=== PATIENT | female | born 1980 | race Caucasian/White ===

== ENCOUNTER 2017-02-16 20:24 | Emergency (ER) | payer OTHER ==
[2017-02-16] MEDS ORDERED: SODIUM CHLORIDE 0.9% 1,000 ML IV STA (20:32)
[2017-02-16] MEDS ORDERED: IBUPROFEN 600 MG TAB PO STA (20:43)
[2017-02-16 20:46] VITALS: RESP 16
--- NOTE | 2017-02-16 20:57 | ED ---
Chest Pain HPI - General Chief Complaint: Chest Pain Stated Complaint: Chest Pain Time Seen by Provider: 02/16/17 20:30 Source: patient, RN notes reviewed Mode of arrival: wheelchair Limitations: no limitations - History of Present Illness Initial Comments: patient is a 36-year-old female presents to the emergency room for evaluation of chest pain. Patient states chest pain began a few hours ago. Patient is having pain on the left anterior chest wall that radiates into her left arm. Patient states she's having 10 out of 10 pain. Patient states the pain is sharp and throbbing. Patient states the pain is worse when she takes a deep breath. Patient states the pain radiates into her back. Patient states she does smoke a pack of cigarettes every 4 days. Patient denies taking anything for pain. Patient denies recent heavy lifting or trauma to her chest. Patient denies any cardiac history. Patient denies headache or dizziness. Patient denies nausea or vomiting. Patient denies abdominal pain. Patient denies fevers or chills. Patient denies any cough or recent cough. Patient also states she has history of asthma. - Related Data Home Medications Medication Instructions Recorded Confirmed Albuterol Inhaler [Ventolin Hfa 1 - 2 puff INHALATION RT-Q6H PRN 02/16/17 Inhaler] Ibuprofen [Motrin] 800 mg PO BID PRN 02/16/17 02/16/17 Previous Rx's Medication Instructions Recorded HYDROcodone/APAP 5-325MG [[place] 1 tab PO Q6HR PRN #12 tab 02/16/17 5-325] Orphenadrine [Norflex] 100 mg PO Q12H PRN #12 tablet.er 02/16/17 Allergies Allergy/AdvReac Type Severity Reaction Status Date / Time Penicillins Allergy Swelling Verified 02/16/17 21:02 Review of Systems ROS Statement: Those systems with pertinent positive or pertinent negative responses have been documented in the HPI. ROS Other: All systems not noted in ROS Statement are negative. EKG Findings - EKG Comments: EKG Findings:: normal sinus rhythm with sinus arrhythmia, ventricular rate 71 bpm, DE interval 154 ms, QRS duration 92 ms, QT/QTC 418/454 ms Past Medical History Past Medical History: Asthma, Cancer Additional Past Medical History / Comment(s): back pain, migraines, cervical Ca History of Any Multi-Drug Resistant Organisms: None Reported Past Surgical History: Cholecystectomy, Tubal Ligation Additional Past Surgical History / Comment(s): left ovary and fallopian tube removed, vaginal reconstruction, cone procedure, cryofreeze for cervical ca Past Psychological History: No Psychological Hx Reported Smoking Status: Current every day smoker Past Alcohol Use History: None Reported Past Drug Use History: None Reported General Exam - General Exam Comments Initial Comments: sitting up in exam room, no acute distress. Limitations: no limitations General appearance: alert, in no apparent distress Head exam: Present: atraumatic, normocephalic, normal inspection Eye exam: Present: normal appearance ENT exam: Present: normal exam Neck exam: Present: normal inspection Respiratory exam: Present: normal lung sounds bilaterally, chest wall tenderness (reproducible left anterior wall chest tenderness on palpation). Absent: respiratory distress Cardiovascular Exam: Present: regular rate, normal rhythm, normal heart sounds GI/Abdominal exam: Present: soft, normal bowel sounds. Absent: distended, tenderness, guarding, rebound, rigid Extremities exam: Present: normal inspection Back exam: Present: normal inspection Neurological exam: Present: alert, oriented X3, CN II-XII intact, normal gait Psychiatric exam: Present: normal affect, normal mood Skin exam: Present: warm, dry, intact, normal color. Absent: rash Course Vital Signs 02/16/17 02/16/17 02/16/17 20:25 20:45 22:17 Temperature 98.3 F 98.7 F Pulse Rate 83 73 68 Respiratory 24 16 16 Rate Blood Pressure 137/93 147/88 143/68 O2 Sat by Pulse 98 98 98 Oximetry 02/16/17 22:56 Temperature 97.8 F Pulse Rate 64 Respiratory 16 Rate Blood Pressure 126/64 O2 Sat by Pulse 96 Oximetry [facility] Patient is a 36-year-old female presents to the emergency room for evaluation of chest pain. Patient has reproducible tenderness on left anterior chest wall. Cardiac enzymes within normal limits. EKG shows no concerning findings. Chest x-ray shows no concerning findings. Most likely that this chest pain is related to musculoskeletal in nature or pleuritic. Patient was sent home with pain medications and advised follow-up with primary care provider. Advised patient to return for any worsening symptoms. Patient states she understands everything that was discussed with her. Case discussed Dr. Corrigan. Disposition Clinical Impression: Costochondral chest pain Disposition: HOME SELF-CARE Condition: Good Instructions: Costochondritis (ED) Additional Instructions: Take medications as needed. Apply ice and heat. Please follow up with primary care provider in 1-2 days. If any new symptom arises or symptoms worsen, return to ER as soon as possible. Prescriptions: HYDROcodone/APAP 5-325MG [[place] 5-325] 1 tab PO Q6HR PRN #12 tab PRN Reason: Pain Orphenadrine [Norflex] 100 mg PO Q12H PRN #12 tablet.er PRN Reason: Pain Referrals: Vu Ramirez DO [Primary Care Provider] - 1-2 days Time of Disposition: 22:34
[2017-02-16] MEDS ORDERED: ASPIRIN 81 MG CHEW PO STA (21:10)
[2017-02-16] MEDS ORDERED: ONDANSETRON 4 MG/2 ML VIAL IVP STA (21:11)
[2017-02-16 21:17] LABS: Amorphous Sediment,Urine Moderate /hpf; Appearance,Urine Turbid (Clear); Bilirubin,Urine Negative (Negative); Glucose,Urine (UA) Negative (Negative); Ketones,Urine Negative (Negative); Leukocyte Esterase,Urine Negative (Negative); Mucus,Urine Rare /hpf; Nitrite,Urine Negative (Negative); PH, Urine 5.5 (5.0-8.0); Particle Count 17285; Protein,Urine Trace (Negative); RBC,Urine 12 /hpf (0-5); Specific Gravity,Urine 1.023 (1.001-1.035); Squamous Epithelial Cell,Urine 5 /hpf (0-4); UA Billing (MACRO vs. MICRO) MICRO; Urobilinogen,Urine <2.0 mg/dL (<2.0); WBC,Urine 27 /hpf (0-5)
[2017-02-16 21:20] LABS: ALT 50 U/L (9-52); AST 20 U/L (14-36); Alkaline Phosphatase 82 U/L (38-126); Amylase <30 U/L (30-110); Anion Gap 11 mmol/L; Blood Urea Nitrogen 10 mg/dL (7-17); Calcium 9.1 mg/dL (8.4-10.2); Carbon Dioxide 22 mmol/L (22-30); Chloride 108 mmol/L (98-107); Glucose 94 mg/dL (74-99); Magnesium 1.9 mg/dL (1.6-2.3); Non-African American GFR(MDRD) >60 (>60 ml/min/1.73 sqM); Potassium 4.1 mmol/L (3.5-5.1); Sodium 141 mmol/L (137-145); Total Bilirubin 0.5 mg/dL (0.2-1.3); Total Protein 6.9 g/dL (6.3-8.2)
[2017-02-16 21:26] LABS: Basophils # (A) 0.1 k/uL (0-0.2); Basophils % (A) 1 %; CH 30.1; CHCM 34.6; Eosinophils # (A) 0.3 k/uL (0-0.7); Eosinophils % (A) 3 %; HDW 2.74; INR 0.9 (<1.1); Luc # (Auto) 0.18; Luc % (Auto) 2; Lymphocytes # (A) 2.9 k/uL (1.0-4.8); Lymphocytes % (A) 31 %; MCH 31.3 pg (25.0-35.0); MCHC 35.9 g/dL (31.0-37.0); MCV 87.2 fL (80.0-100.0); Mean Platelet Volume 6.5; Monocytes # (A) 0.5 k/uL (0-1.0); Monocytes % (A) 5 %; Neutrophils # (A) 5.4 k/uL (1.3-7.7); Neutrophils % (A) 58 %; Partial Thromboplastin Time 24.8 sec (22.0-30.0); Prothrombin Time 9.7 sec (9.0-12.0); RBC 4.48 m/uL (3.80-5.40); RDW 13.3 % (11.5-15.5); WBC 9.4 k/uL (3.8-10.6); WBC (Perox) 9.74
[2017-02-16 21:32] LABS: Creatine Kinase 61 U/L (30-135)
[2017-02-16 21:45] LABS: Creatine Kinase MB 1.5 ng/mL (0.0-2.4); Troponin I <0.012 ng/mL (0.000-0.034)
[2017-02-16] MEDS ORDERED: ACETAMINOPHEN TAB 500 MG TAB PO STA (22:00)
--- NOTE | 2017-02-16 22:05 | XR ---
EXAMINATION TYPE: XR chest 2V DATE OF EXAM: 02/16/2017 COMPARISON: July 10, 2014 HISTORY: pain TECHNIQUE: Frontal and lateral views of the chest are obtained. FINDINGS: There is no focal air space opacity, pleural effusion, or pneumothorax seen. The cardiac silhouette size is within normal limits. The osseous structures are intact. IMPRESSION: No acute cardiopulmonary process.
[2017-02-16] MEDS ORDERED: MORPHINE SULFATE 4 MG/ML SYRINGE IVP STA (22:15)
[2017-02-16 22:58] VITALS: BP 126/64; PULSE 64; TEMP 97.8
== END 2017-02-16 22:57 | disposition home or self-care (01) ==
LOC: EC 20:24
DX: R07.1 Chest pain on breathing (principal); F17.210 Nicotine dependence, cigarettes, uncomplicated; Z85.41 Personal history of malignant neoplasm of cervix uteri; Z88.0 Allergy status to penicillin
CPT/HCPCS: 99285; 96374; 96375; 96361; 36415; 93005; 85379; 80053; 82150; 82550; 82553; 83690; 83735; 84484; 85025; 85610; 85730; 81001; 81025; 71020; J2270; J2405

== ENCOUNTER 2018-02-04 16:01 | Emergency (ER) | payer OTHER ==
[2018-02-04] MEDS ORDERED: KETOROLAC 30 MG/ML 1 ML VIAL IVP STA (16:16)
[2018-02-04] MEDS ORDERED: ONDANSETRON 4 MG/2 ML VIAL IVP STA (16:16)
[2018-02-04] MEDS ORDERED: SODIUM CHLORIDE 0.9% 1,000 ML IV ONE (16:16)
--- NOTE | 2018-02-04 16:20 | ED ---
Female Urogenital HPI - General Chief complaint: Vaginal Bleeding Stated complaint: Vaginal Bleeding Time Seen by Provider: 02/04/18 16:07 Source: patient Mode of arrival: ambulatory Limitations: no limitations - History of Present Illness Initial comments: 37-year-old female patient presents to the emergency department today for complaints of vaginal bleeding 2 weeks. Patient states that she has been having heavy vaginal bleeding with passage of large clots for the last 2 weeks. Patient states that it did stop last night however continued again this afternoon. States that the bleeding ranges from bright red to brown. States that she has had cervical cancer in the past with cone procedure and cryotherapy. States that she has had one ovary removed. She has had her tubes tied. She denies any chance of related to this. States that her periods are very irregular after having nexplanon in her arm for 3 years. States that she is unsure when her last normal menstrual period was. States that she is having severe lower abdominal cramping at this time. She is complaining of low back pain. States she feels nauseous. Denies any dysuria, urinary frequency, urinary urgency. Denies any fevers or chills. Patient denies any recent rash, shortness breath, chest pain, vomiting, diarrhea, constipation, back pain, numbness, tingling, dizziness, weakness, headache, visual changes, or any other complaints. States it has been "over a year" since she last saw an OBGYN. - Related Data Home Medications Medication Instructions Recorded Confirmed Albuterol Inhaler [Ventolin Hfa 1 - 2 puff INHALATION RT-Q6H PRN 02/16/17 Inhaler] Ibuprofen [Motrin] 800 mg PO BID PRN 02/16/17 02/16/17 Previous Rx's Medication Instructions Recorded HYDROcodone/APAP 5-325MG [[place] 1 tab PO Q6HR PRN #12 tab 02/16/17 5-325] Orphenadrine [Norflex] 100 mg PO Q12H PRN #12 tablet.er 02/16/17 Acetaminophen-Codeine 300-30mg 1 tab PO Q6H PRN #12 tablet 02/04/18 [Tylenol #3] Ibuprofen [Motrin] 600 mg PO Q8HR PRN #30 tab 02/04/18 Allergies Allergy/AdvReac Type Severity Reaction Status Date / Time Penicillins Allergy Swelling Verified 02/04/18 16:06 Review of Systems ROS Statement: Those systems with pertinent positive or pertinent negative responses have been documented in the HPI. ROS Other: All systems not noted in ROS Statement are negative. Past Medical History Past Medical History: Asthma, Cancer Additional Past Medical History / Comment(s): back pain, migraines, cervical Ca History of Any Multi-Drug Resistant Organisms: None Reported Past Surgical History: Cholecystectomy, Tubal Ligation Additional Past Surgical History / Comment(s): left ovary and fallopian tube removed, vaginal reconstruction, cone procedure, cryofreeze for cervical ca Past Psychological History: No Psychological Hx Reported Smoking Status: Current every day smoker Past Alcohol Use History: None Reported Past Drug Use History: None Reported General Exam Limitations: no limitations General appearance: alert, in no apparent distress, other (This is a well- developed, well-nourished adult female patient in no acute distress. Vital signs upon presentation are temperature 98.1F, pulse 89, respirations 20, blood pressure 137/86, pulse ox 98% on room air.) Eye exam: Present: normal appearance, PERRL, EOMI. Absent: scleral icterus, conjunctival injection, periorbital swelling ENT exam: Present: normal exam, normal oropharynx, mucous membranes moist Respiratory exam: Present: normal lung sounds bilaterally. Absent: respiratory distress, wheezes, rales, rhonchi, stridor Cardiovascular Exam: Present: regular rate, normal rhythm, normal heart sounds. Absent: systolic murmur, diastolic murmur, rubs, gallop, clicks GI/Abdominal exam: Present: soft, normal bowel sounds. Absent: distended, tenderness, guarding, rebound, rigid External exam: Present: normal external exam Speculum exam: Present: normal speculum exam, vaginal bleeding (Small amount of dark red blood. ) Neurological exam: Present: alert, oriented X3, CN II-XII intact Psychiatric exam: Present: normal affect, normal mood Skin exam: Present: warm, dry, intact, normal color. Absent: rash Course Vital Signs 02/04/18 02/04/18 16:02 17:47 Temperature 98.1 F 97.9 F Pulse Rate 89 79 Respiratory 20 18 Rate Blood Pressure 137/86 109/57 O2 Sat by Pulse 98 98 Oximetry Medical Decision Making - Medical Decision Making -year-old female patient presents to the emergency department today for evaluation of heavy vaginal bleeding 2 weeks. Physical examination is unremarkable. Pelvic exam reveals a small amount of dark red vaginal bleeding. No adnexal tenderness. Ultrasound was obtained and showed no acute abnormalities. Labs reviewed and were normal. Hemoglobin normal. HCG was negative. I did discuss findings and results with the patient. She is instructed to follow-up with the mill recorder for recheck as soon as possible. She'll be given pain medication for her severe cramping. Return parameters discussed in detail. She verbalizes understanding and agrees with this plan. - Lab Data Result diagrams: 02/04/18 16:25 02/04/18 16:25 Lab Results 02/04/18 02/04/18 02/04/18 Range/Units 16:25 16:25 16:25 WBC 10.8 H (3.8-10.6) k/uL RBC 4.87 (3.80-5.40) m/uL Hgb 14.1 (11.4-16.0) gm/dL Hct 41.9 (34.0-46.0) % MCV 86.0 (80.0-100.0) fL MCH 28.9 (25.0-35.0) pg MCHC 33.6 (31.0-37.0) g/dL RDW 13.7 (11.5-15.5) % Plt Count 331 (150-450) k/uL Neutrophils % 63 % Lymphocytes % 27 % Monocytes % 4 % Eosinophils % 3 % Basophils % 1 % Neutrophils # 6.8 (1.3-7.7) k/uL Lymphocytes # 2.9 (1.0-4.8) k/uL Monocytes # 0.5 (0-1.0) k/uL Eosinophils # 0.4 (0-0.7) k/uL Basophils # 0.1 (0-0.2) k/uL PT 9.7 (9.0-12.0) sec INR 1.0 (<1.2) APTT 24.4 (22.0-30.0) sec Sodium 140 (137-145) mmol/L Potassium 3.9 (3.5-5.1) mmol/L Chloride 109 H (98-107) mmol/L Carbon Dioxide 18 L (22-30) mmol/L Anion Gap 13 mmol/L BUN 11 (7-17) mg/dL Creatinine 0.64 (0.52-1.04) mg/dL Est GFR (CKD-EPI)AfAm >90 (>60 ml/min/1.73 sqM) Est GFR (CKD-EPI)NonAf >90 (>60 ml/min/1.73 sqM) Glucose 107 H (74-99) mg/dL Calcium 9.0 (8.4-10.2) mg/dL Total Bilirubin 0.2 (0.2-1.3) mg/dL AST 23 (14-36) U/L ALT 49 (9-52) U/L Alkaline Phosphatase 77 (38-126) U/L Total Protein 7.0 (6.3-8.2) g/dL Albumin 4.4 (3.5-5.0) g/dL Urine Color Urine Appearance (Clear) Urine pH (5.0-8.0) Ur Specific [place] (1.001-1.035) Urine Protein (Negative) Urine Glucose (UA) (Negative) Urine Ketones (Negative) Urine Blood (Negative) Urine Nitrite (Negative) Urine Bilirubin (Negative) Urine Urobilinogen (<2.0) mg/dL Ur Leukocyte Esterase (Negative) Urine RBC (0-5) /hpf Urine WBC (0-5) /hpf Ur Squamous Epith Cells (0-4) /hpf Urine Mucus (None) /hpf Urine HCG, Qual (Not Detectd) 02/04/18 02/04/18 Range/Units 17:44 17:44 WBC (3.8-10.6) k/uL RBC (3.80-5.40) m/uL Hgb (11.4-16.0) gm/dL Hct (34.0-46.0) % MCV (80.0-100.0) fL MCH (25.0-35.0) pg MCHC (31.0-37.0) g/dL RDW (11.5-15.5) % Plt Count (150-450) k/uL Neutrophils % % Lymphocytes % % Monocytes % % Eosinophils % % Basophils % % Neutrophils # (1.3-7.7) k/uL Lymphocytes # (1.0-4.8) k/uL Monocytes # (0-1.0) k/uL Eosinophils # (0-0.7) k/uL Basophils # (0-0.2) k/uL PT (9.0-12.0) sec INR (<1.2) APTT (22.0-30.0) sec Sodium (137-145) mmol/L Potassium (3.5-5.1) mmol/L Chloride (98-107) mmol/L Carbon Dioxide (22-30) mmol/L Anion Gap mmol/L BUN (7-17) mg/dL Creatinine (0.52-1.04) mg/dL Est GFR (CKD-EPI)AfAm (>60 ml/min/1.73 sqM) Est GFR (CKD-EPI)NonAf (>60 ml/min/1.73 sqM) Glucose (74-99) mg/dL Calcium (8.4-10.2) mg/dL Total Bilirubin (0.2-1.3) mg/dL AST (14-36) U/L ALT (9-52) U/L Alkaline Phosphatase (38-126) U/L Total Protein (6.3-8.2) g/dL Albumin (3.5-5.0) g/dL Urine Color Yellow Urine Appearance Clear (Clear) Urine pH 5.5 (5.0-8.0) Ur Specific [place] 1.034 (1.001-1.035) Urine Protein 1+ H (Negative) Urine Glucose (UA) Negative (Negative) Urine Ketones Negative (Negative) Urine Blood Large H (Negative) Urine Nitrite Negative (Negative) Urine Bilirubin Negative (Negative) Urine Urobilinogen 3.0 (<2.0) mg/dL Ur Leukocyte Esterase Negative (Negative) Urine RBC 1 (0-5) /hpf Urine WBC 2 (0-5) /hpf Ur Squamous Epith Cells 2 (0-4) /hpf Urine Mucus Few H (None) /hpf Urine HCG, Qual Not Detected (Not Detectd) - Radiology Data Radiology results: report reviewed Transvaginal ultrasound was obtained and shows minimal free fluid in the pelvis. Simple right ovarian cyst. No solid adnexal mass. Normal uterus and endometrium. Disposition Clinical Impression: Dysfunctional uterine bleeding Disposition: HOME SELF-CARE Condition: Good Instructions: Dysfunctional Uterine Bleeding (ED) Additional Instructions: Follow-up with [facility] as soon as possible. Return here immediately for any new , worsening, or concerning symptoms. Prescriptions: Acetaminophen-Codeine 300-30mg [Tylenol #3] 1 tab PO Q6H PRN #12 tablet PRN Reason: Pain Ibuprofen [Motrin] 600 mg PO Q8HR PRN #30 tab PRN Reason: Pain Is patient prescribed a controlled substance at d/c from ED?: Yes When asked, does pt state using other controlled substances?: No If prescribed controlled substance>3 days was MAPS reviewed?: Prescribed <3 Days If opioid is for acute pain is fill amount 7 days or less?: Yes If Rx opioid, was Start Talking consent form obtained?: Yes Referrals: Vu Ramirez DO [Primary Care Provider] - 1-2 days Althea Ovalles DO [Doctor of Osteopathic Medicine] - 1-2 days Time of Disposition: 18:32
[2018-02-04 16:32] LABS: HGB 14.1 gm/dL (11.4-16.0); RBC 4.87 m/uL (3.80-5.40); WBC 10.8 k/uL (3.8-10.6)
[2018-02-04 16:33] LABS: Basophils # (A) 0.1 k/uL (0-0.2); Basophils % (A) 1 %; Eosinophils # (A) 0.4 k/uL (0-0.7); Eosinophils % (A) 3 %; HCT 41.9 % (34.0-46.0); Lymphocytes # (A) 2.9 k/uL (1.0-4.8); Lymphocytes % (A) 27 %; MCH 28.9 pg (25.0-35.0); MCHC 33.6 g/dL (31.0-37.0); Mean Platelet Volume 6.5; Monocytes # (A) 0.5 k/uL (0-1.0); Monocytes % (A) 4 %; Neutrophils # (A) 6.8 k/uL (1.3-7.7); Neutrophils % (A) 63 %; Platelet Count 331 k/uL (150-450); RDW 13.7 % (11.5-15.5)
[2018-02-04 16:42] LABS: ALT 49 U/L (9-52); AST 23 U/L (14-36); Albumin 4.4 g/dL (3.5-5.0); Alkaline Phosphatase 77 U/L (38-126); Anion Gap 13 mmol/L; Blood Urea Nitrogen 11 mg/dL (7-17); Carbon Dioxide 18 mmol/L (22-30); Chloride 109 mmol/L (98-107); Glucose 107 mg/dL (74-99); Potassium 3.9 mmol/L (3.5-5.1); Sodium 140 mmol/L (137-145); Total Bilirubin 0.2 mg/dL (0.2-1.3)
[2018-02-04 16:43] LABS: Partial Thromboplastin Time 24.4 sec (22.0-30.0); Prothrombin Time 9.7 sec (9.0-12.0)
--- NOTE | 2018-02-04 17:34 | US ---
EXAMINATION TYPE: US transvaginal DATE OF EXAM: 02/04/2018 COMPARISON: NONE CLINICAL HISTORY: pain. Bleeding x 2 weeks, patient states she has heavy irregular cycles, 3, para 3, history of left oophorectomy and tubal ligation TECHNIQUE: Transvaginal ER exam. Date of LMP: Patient unsure EXAM MEASUREMENTS: Uterus: 7.9 x 4.3 x 4.6 cm Endometrial Stripe: 0.5 cm Right Ovary: 3.7 x 2.5 x 3.3 cm Left Ovary: surgically absent 1. Uterus: anteverted, mildly heterogeneous 2. Endometrium: appears wnl 3. Right Ovary: 2.3 x 2.0 x 1.7cm cystic area with internal echoes, smaller simple appearing cyst ad jacent to larger one 4. Left Ovary: surgically absent Spectral, color and waveform doppler imaging shows good arterial flow within right ovary, unable to obtain venous flow within right ovary. 5. Bilateral Adnexa: wnl 6. Posterior cul-de-sac: small amount of free fluid IMPRESSION: Minimal free fluid in the pelvis. Simple right ovarian cyst. No solid adnexal mass. Ai l uterus and endometrium.
[2018-02-04 17:48] VITALS: BP 109/57; PULSE 79; RESP 18; TEMP 97.9
[2018-02-04 18:20] LABS: Appearance,Urine Clear (Clear); Bilirubin,Urine Negative (Negative); Blood,Urine Large (Negative); Color,Urine Yellow; Glucose,Urine (UA) Negative (Negative); Ketones,Urine Negative (Negative); Leukocyte Esterase,Urine Negative (Negative); Mucus,Urine Few /hpf; Nitrite,Urine Negative (Negative); PH, Urine 5.5 (5.0-8.0); Protein,Urine 1+ (Negative); RBC,Urine 1 /hpf (0-5); Specific Gravity,Urine 1.034 (1.001-1.035); Squamous Epithelial Cell,Urine 2 /hpf (0-4); WBC,Urine 2 /hpf (0-5)
== END 2018-02-04 19:02 | disposition home or self-care (01) ==
LOC: EC 16:01
DX: N93.8 Other specified abnormal uterine and vaginal bleeding (principal); R11.0 Nausea; M54.5 Low back pain; J45.909 Unspecified asthma, uncomplicated; F17.200 Nicotine dependence, unspecified, uncomplicated; Z85.41 Personal history of malignant neoplasm of cervix uteri; Z90.49 Acquired absence of other specified parts of digestive tract; Z98.51 Tubal ligation status; Z88.0 Allergy status to penicillin
CPT/HCPCS: 36415; 80053; 85025; 85610; 85730; 81001; 81025; 93976; 76830; 99284; 96374; 96375; 96361; J2405; J1885

== ENCOUNTER 2019-12-24 12:18 | Emergency (ER) | payer OTHER ==
[2019-12-24] MEDS ORDERED: KETOROLAC 30 MG/ML 1 ML VIAL IM STA (12:41)
--- NOTE | 2019-12-24 12:45 | ED ---
General Adult HPI - General Chief complaint: Extremity Injury, Lower Stated complaint: right knee pain Time Seen by Provider: 12/24/19 12:24 Source: patient, RN notes reviewed Mode of arrival: ambulatory Limitations: physical limitation - History of Present Illness Initial comments: 39-year-old female with a history of asthma, cervical cancer, back pain, migraines presents to the emergency department for a chief complaint of right knee pain. Patient states this started 2 days ago. States that it radiates up and down her leg. States it looks a little bit swollen. Denies erythema of the area. Denies IV drug use. Patient denies any fevers. Patient denies stating she has had a hysterectomy.Patient has no other complaints at this time including shortness of breath, chest pain, abdominal pain, nausea or vomiting, headache, or visual changes. - Related Data Home Medications Medication Instructions Recorded Confirmed Albuterol Inhaler (Mhu) [Ventolin 1 - 2 puff INHALATION RT-Q6H PRN 02/16/17 02/16/17 Hfa Inhaler] Ibuprofen [Motrin] 800 mg PO BID PRN 02/16/17 02/16/17 Previous Rx's Medication Instructions Recorded HYDROcodone/APAP 5-325MG [[place] 1 tab PO Q6HR PRN #12 tab 02/16/17 5-325] Orphenadrine [Norflex] 100 mg PO Q12H PRN #12 tablet.er 02/16/17 Acetaminophen-Codeine 300-30mg 1 tab PO Q6H PRN #12 tablet 02/04/18 [Tylenol #3] Ibuprofen [Motrin] 600 mg PO Q8HR PRN #30 tab 02/04/18 Allergies Allergy/AdvReac Type Severity Reaction Status Date / Time Penicillins Allergy Swelling Verified 12/24/19 12:23 Review of Systems ROS Statement: Those systems with pertinent positive or pertinent negative responses have been documented in the HPI. ROS Other: All systems not noted in ROS Statement are negative. Past Medical History Past Medical History: Asthma, Cancer Additional Past Medical History / Comment(s): back pain, migraines, cervical Ca History of Any Multi-Drug Resistant Organisms: None Reported Past Surgical History: Cholecystectomy, Tubal Ligation Additional Past Surgical History / Comment(s): left ovary and fallopian tube removed, vaginal reconstruction, cone procedure, cryofreeze for cervical ca Past Psychological History: No Psychological Hx Reported Smoking Status: Current every day smoker Past Alcohol Use History: Occasional Past Drug Use History: Marijuana General Exam Limitations: physical limitation General appearance: alert, in no apparent distress Head exam: Present: atraumatic, normocephalic, normal inspection Eye exam: Present: normal appearance, PERRL, EOMI. Absent: scleral icterus, conjunctival injection, periorbital swelling ENT exam: Present: normal exam, mucous membranes moist Neck exam: Present: normal inspection. Absent: tenderness, meningismus, lymphadenopathy Respiratory exam: Present: normal lung sounds bilaterally. Absent: respiratory distress, wheezes, rales, rhonchi, stridor Cardiovascular Exam: Present: regular rate, normal rhythm, normal heart sounds. Absent: systolic murmur, diastolic murmur, rubs, gallop, clicks Extremities exam: Present: tenderness (Patient is a tenderness to the posterior knee and calf.), normal capillary refill (Capillary refill less than 2 seconds, to be postictal S in the right lower extremity.), joint swelling (Mild edema of the right knee however there is no increased warmth to the right knee. No erythema.), other ([place] intact in the right lower extremity.). Absent: full ROM (Patient has 90 flexion of the right knee, full extension.), pedal akosua ma, calf tenderness Course Vital Signs 12/24/19 12:21 Temperature 97.9 F Pulse Rate 69 Respiratory 18 Rate Blood Pressure 161/101 O2 Sat by Pulse 100 Oximetry Medical Decision Making - Medical Decision Making Ultrasound shows no evidence of DVT at this time. X-ray of the right knee shows no acute fracture or dislocation. On reevaluation patient is in much better. Patient can flex her knee past 90. She came in on the right knee. I do not see any erythema or increased warmth. No fevers. No current evidence for a septic arthritis. At this time patient will be discharged home to follow up with orthopedics. She will be given pain medicine and an immobilizer. She'll return for any worsening symptoms. Disposition Clinical Impression: Knee pain Disposition: HOME SELF-CARE Condition: Good Instructions (If sedation given, give patient instructions): Knee Pain (ED) Additional Instructions: Please use knee immobilizer as directed. Please follow-up with primary care 1-2 days. Return to the emergency department for any worsening symptoms. Return for any redness or warmth or fevers. Is patient prescribed a controlled substance at d/c from ED?: No Referrals: Vu Ramirez DO [Primary Care Provider] - 1-2 days Keanu Rivero DO [Doctor of Osteopathic Medicine] - 1-2 days Time of Disposition: 14:11
--- NOTE | 2019-12-24 12:59 | XR ---
EXAMINATION TYPE: XR knee complete RT DATE OF EXAM: 12/24/2019 CLINICAL HISTORY: pain TECHNIQUE: Three views of the right knee are obtained. COMPARISON: None. FINDINGS: There is no acute fracture/dislocation. The tri-compartment joint spaces appear moderatel y narrowed. Small joint effusion noted. The overlying soft tissue appears unremarkable. IMPRESSION: There is no acute fracture or dislocation.ICD 10 NO FRACTURE, INITIAL EVALUATION
--- NOTE | 2019-12-24 13:19 | US ---
EXAMINATION TYPE: US venous doppler duplex LE RT DATE OF EXAM: 12/24/2019 1:13 PM COMPARISON: CLINICAL HISTORY: pain. right leg pain. No hx DVT SIDE PERFORMED: Right TECHNIQUE: The lower extremity deep venous system is examined utilizing real time linear array sonog gage with graded compression, doppler sonography and color-flow sonography. VESSELS IMAGED: External Iliac Vein (EIV) Common Femoral Vein Deep Femoral Vein Greater Saphenous Vein * Femoral Vein Popliteal Vein Small Saphenous Vein * Proximal Calf Veins (* superficial vessels) Right Leg: Negative for DVT IMPRESSION: No evidence for DVT at this time.
[2019-12-24] MEDS ORDERED: ACET/COD 300 MG/30 MG STARTER PACK 6 TAB BTL PO STA (14:21)
[2019-12-24 14:33] VITALS: BP 158/90; PULSE 62; RESP 16; TEMP 98.1
== END 2019-12-24 14:31 | disposition home or self-care (01) ==
LOC: EC 12:18
DX: M25.561 Pain in right knee (principal); M79.89 Other specified soft tissue disorders; R60.9 Edema, unspecified; J45.909 Unspecified asthma, uncomplicated; F17.200 Nicotine dependence, unspecified, uncomplicated; Z79.51 Long term (current) use of inhaled steroids; Z85.41 Personal history of malignant neoplasm of cervix uteri; Z88.0 Allergy status to penicillin
CPT/HCPCS: 73562; 93971; 96372; 99284; L1830 ×2; J1885

== ENCOUNTER 2020-04-10 17:57 | Emergency (ER) | payer OTHER ==
[2020-04-10 18:02] VITALS: BP 142/95; PULSE 88; RESP 18; TEMP 99
--- NOTE | 2020-04-10 18:22 | ED ---
General Adult HPI - General Chief complaint: Skin/Abscess/Foreign Body Stated complaint: Rash Time Seen by Provider: 04/10/20 18:00 Source: patient, RN notes reviewed Mode of arrival: ambulatory Limitations: no limitations - History of Present Illness Initial comments: Patient is a pleasant 39-year-old female presenting to the emergency department with complaints of rash. Rash has been present for months. Rash waxes and wanes. Rash is diffuse. Patient does have history of eczema and psoriasis and questions if it could be one of those. Patient has tried [id number] creams without improvement of symptoms. Patient does have a mild itch associated to this. No fevers. Patient also states there is a different type of rash in her groin. - Related Data Home Medications Medication Instructions Recorded Confirmed Albuterol Inhaler (Mhu) [Ventolin 1 - 2 puff INHALATION RT-Q6H PRN 02/16/17 02/16/17 Hfa Inhaler] Ibuprofen [Motrin] 800 mg PO BID PRN 02/16/17 02/16/17 Previous Rx's Medication Instructions Recorded HYDROcodone/APAP 5-325MG [[place] 1 tab PO Q6HR PRN #12 tab 02/16/17 5-325] Orphenadrine [Norflex] 100 mg PO Q12H PRN #12 tablet.er 02/16/17 Acetaminophen-Codeine 300-30mg 1 tab PO Q6H PRN #12 tablet 02/04/18 [Tylenol #3] Ibuprofen [Motrin] 600 mg PO Q8HR PRN #30 tab 02/04/18 Betamethasone Dipropionate 1 applic TOPICAL BID #60 ml 04/10/20 [Betamethasone Dipropionate 0.05%] Nystatin 100,000 Unit/gm Powd 1 applic TOPICAL BID #30 gm 04/10/20 [Mycostatin Powder] hydrOXYzine HCL [Atarax] 25 mg PO TID PRN #20 tab 04/10/20 Allergies Allergy/AdvReac Type Severity Reaction Status Date / Time Penicillins Allergy Swelling Verified 04/10/20 18:02 Review of Systems ROS Statement: Those systems with pertinent positive or pertinent negative responses have been documented in the HPI. ROS Other: All systems not noted in ROS Statement are negative. Constitutional: Denies: fever Eyes: Denies: eye pain ENT: Denies: ear pain Respiratory: Denies: cough Cardiovascular: Denies: chest pain Endocrine: Denies: fatigue Gastrointestinal: Denies: abdominal pain Genitourinary: Denies: dysuria Musculoskeletal: Denies: back pain Skin: Reports: as per HPI, rash Past Medical History Past Medical History: Asthma, Cancer Additional Past Medical History / Comment(s): back pain, migraines, cervical Ca History of Any Multi-Drug Resistant Organisms: None Reported Past Surgical History: Cholecystectomy, Tubal Ligation Additional Past Surgical History / Comment(s): left ovary and fallopian tube removed, vaginal reconstruction, cone procedure, cryofreeze for cervical ca Past Psychological History: No Psychological Hx Reported Smoking Status: Vaper Past Alcohol Use History: Occasional Past Drug Use History: Marijuana General Exam Limitations: no limitations General appearance: alert, in no apparent distress Head exam: Present: normocephalic Eye exam: Present: normal appearance Respiratory exam: Present: normal lung sounds bilaterally Cardiovascular Exam: Present: regular rate, normal rhythm GI/Abdominal exam: Present: soft. Absent: tenderness Extremities exam: Present: normal inspection Neurological exam: Present: alert Psychiatric exam: Present: normal affect, normal mood Expanded Description of rash: Present: other (Patient has diffuse patchy rash with areas up to 1 cm, larger on these extensive surface of the elbow. Patient also has er ythematous moist rash of her inguinal region) Course Vital Signs 04/10/20 17:59 Temperature 99.0 F Pulse Rate 88 Respiratory 18 Rate Blood Pressure 142/95 O2 Sat by Pulse 97 Oximetry Medical Decision Making - Medical Decision Making Patient's inguinal region appears fungal rash. Patient has diffuse rash consistent with appearance of infiltrates right axis. Patient is advised dermatology evaluation. Disposition Clinical Impression: Psoriasis, Tinea cruris Disposition: HOME SELF-CARE Condition: Stable Instructions (If sedation given, give patient instructions): Psoriasis (ED) Additional Instructions: Please follow-up with the [facility], number provided. You may also be a referral from her primary care physician. Return for fever, increased rash, worsening or changing symptoms or other concerns. Description sent to [facility] on 10 Prescriptions: hydrOXYzine HCL [Atarax] 25 mg PO TID PRN #20 tab PRN Reason: Itching Betamethasone Dipropionate [Betamethasone Dipropionate 0.05%] 1 applic TOPICAL BID #60 ml Nystatin 100,000 Unit/gm Powd [Mycostatin Powder] 1 applic TOPICAL BID #30 gm Is patient prescribed a controlled substance at d/c from ED?: No Referrals: Vu Ramirez DO [Primary Care Provider] - 1-2 days Dariana Ross MD [STAFF PHYSICIAN] - 1-2 days Time of Disposition: 18:20
== END 2020-04-10 18:32 | disposition home or self-care (01) ==
LOC: EC 17:57
DX: B35.6 Tinea cruris (principal); L40.9 Psoriasis, unspecified; J45.909 Unspecified asthma, uncomplicated; F17.290 Nicotine dependence, other tobacco product, uncomplicated; Z79.51 Long term (current) use of inhaled steroids; Z88.0 Allergy status to penicillin; Z85.41 Personal history of malignant neoplasm of cervix uteri
CPT/HCPCS: 99282

== ENCOUNTER 2020-05-20 07:03 | Emergency (ER) | payer OTHER ==
[2020-05-20 07:10] VITALS: RESP 18
[2020-05-20] MEDS ORDERED: METOCLOPRAMIDE 5 MG/ML 2 ML VIAL IVP STA (07:22)
[2020-05-20] MEDS ORDERED: SODIUM CHLORIDE 0.9% 1,000 ML IV STA (07:22)
[2020-05-20] MEDS ORDERED: HYDROcodone/APAP 5-325MG 1 EACH TAB PO STA (07:24)
--- NOTE | 2020-05-20 07:29 | ED ---
General Adult HPI - General Chief complaint: Abdominal Pain Stated complaint: abd pain Time Seen by Provider: 05/20/20 07:11 Source: patient, RN notes reviewed, old records reviewed Mode of arrival: ambulatory Limitations: no limitations - History of Present Illness Initial comments: 39-year-old female patient comes to ED for evaluation of lower abdominal pain. Patient reports that beginning last night she started having right lower abdomi nal pain which she felt like cramps similar to her potentially starting her period. Patient reports that since then she's been having diarrhea has had nausea has been feeling somewhat hot and cold feels like the pain is moving up more periumbilical. She does a history of left oophorectomy secondary to large cysts 12 or 13 years ago per Patient's history. She is denying any other complaints at this time. Does not believe that she is today. Systemic: Pt denies fatigue, fever/chills, rash. Pt denies weakness, night sweats, weight loss. Neuro: Pt denies headache, visual disturbances, syncope or pre-syncope. HEENT: Pt denies ocular discharge or irritation, otalgia, rhinorrhea, pharyngitis or notable lymphadenopathy. Cardiopulmonary: Pt denies chest pain, SOB, heart palpitations, dyspnea on exertion. Abdominal/GI: Pt denies vomiting. : Pt denies dysuria, burning w/ urination, frequency/urgency. Denies new onset urinary or bowel incontinence. MSK: Pt denies myalgia, loss of strength or function in extremities. Neuro: Pt denies new onset weakness, paresthesias. - Related Data Home Medications Medication Instructions Recorded Confirmed Ciprofloxacin HCl [Cipro] 500 mg PO Q12HR 05/20/20 05/20/20 Ibuprofen [Motrin Ib] 200 mg PO Q8H PRN 05/20/20 05/20/20 Previous Rx's Medication Instructions Recorded Sulfamethox-Tmp 800-160Mg [Bactrim 1 tab PO Q12HR #20 tab 05/20/20 DS 800-160 mg] Allergies Allergy/AdvReac Type Severity Reaction Status Date / Time Penicillins Allergy Swelling Verified 05/20/20 07:35 Review of Systems ROS Statement: Those systems with pertinent positive or pertinent negative responses have been documented in the HPI. ROS Other: All systems not noted in ROS Statement are negative. Past Medical History Past Medical History: Asthma, Cancer Additional Past Medical History / Comment(s): back pain, migraines, cervical Ca History of Any Multi-Drug Resistant Organisms: None Reported Past Surgical History: Cholecystectomy, Tubal Ligation Additional Past Surgical History / Comment(s): left ovary and fallopian tube removed, vaginal reconstruction, cone procedure, cryofreeze for cervical ca Past Psychological History: No Psychological Hx Reported Smoking Status: Vaper Past Alcohol Use History: Occasional Past Drug Use History: Marijuana General Exam - General Exam Comments Initial Comments: Constitutional: NAD, AOX3, Pt has pleasant affect. HEENT: NC/AT, trachea midline, neck supple, no lymphadenopathy. External ears appear normal, without discharge. Mucous membranes moist. Eyes PERRLA, EOM intact. There is no scleral icterus. No pallor noted. Cardiopulmonary: RRR, no murmurs, rubs or gallops, no JVD noted. Lungs CTAB in anterior and posterior noriega. No peripheral edema. Abdominal exam: Abdomen soft and non-distended. Abdomen mildly tender to palpation in right lower quadrant, periumbilical region. Bowel sounds active in LLQ. No hepatosplenomegaly. No ecchymosis Neuro: CN II-XII grossly intact. No nuchal rigidity. No raccon eyes, no uribe sign, no hemotympanum. No cervical spinal tenderness. MSK: Full active ROM in upper and lower extremities. Limitations: no limitations Course Vital Signs 05/20/20 05/20/20 05/20/20 07:09 08:10 09:00 Temperature 97.8 F Pulse Rate 66 56 L 56 L Respiratory 18 18 18 Rate Blood Pressure 147/83 117/61 117/61 O2 Sat by Pulse 96 99 99 Oximetry Medical Decision Making - Medical Decision Making 39-year-old female patient presents to ED for evaluation of abdominal pain. Patient vital signs are stable, afebrile. Physical exam didn't display some right lower quadrant periumbilical abdominal tenderness. Laboratory investig ations were unremarkable. An ultrasound was performed which did not display any acute pathology. CT abdomen and pelvis displayed mild wall thickening left colon into distal colon., Mild splenomegaly, fatty liver. Patient's symptoms have improved. Repeat evaluation patient brought to my attention that she just noticed that she had some drainage from what appears to be a superficial abscess on her left lower abdomen region. This does appear to have drained and full already. There are no cellulitic changes otherwise. Patient placed on Bactrim for this. Patient discharged with outpatient primary care follow-up and return precautions. Case discussed and pt seen with Dr. Avilez. - Lab Data Result diagrams: 05/20/20 07:45 05/20/20 07:45 Lab Results 05/20/20 05/20/20 05/20/20 Range/Units 07:45 07:45 07:45 WBC 7.8 (3.8-10.6) k/uL RBC 4.83 (3.80-5.40) m/uL Hgb 14.2 (11.4-16.0) gm/dL Hct 42.6 (34.0-46.0) % MCV 88.1 (80.0-100.0) fL MCH 29.4 (25.0-35.0) pg MCHC 33.3 (31.0-37.0) g/dL RDW 12.7 (11.5-15.5) % Plt Count 303 (150-450) k/uL Neutrophils % 63 % Lymphocytes % 27 % Monocytes % 5 % Eosinophils % 3 % Basophils % 1 % Neutrophils # 4.9 (1.3-7.7) k/uL Lymphocytes # 2.1 (1.0-4.8) k/uL Monocytes # 0.4 (0-1.0) k/uL Eosinophils # 0.2 (0-0.7) k/uL Basophils # 0.1 (0-0.2) k/uL Sodium (137-145) mmol/L Potassium (3.5-5.1) mmol/L Chloride (98-107) mmol/L Carbon Dioxide (22-30) mmol/L Anion Gap mmol/L BUN (7-17) mg/dL Creatinine (0.52-1.04) mg/dL Est GFR (CKD-EPI)AfAm (>60 ml/min/1.73 sqM) Est GFR (CKD-EPI)NonAf (>60 ml/min/1.73 sqM) Glucose (74-99) mg/dL Plasma Lactic Acid Tariq (0.7-2.0) mmol/L Calcium (8.4-10.2) mg/dL Total Bilirubin (0.2-1.3) mg/dL AST (14-36) U/L ALT (4-34) U/L Alkaline Phosphatase (38-126) U/L Total Protein (6.3-8.2) g/dL Albumin (3.5-5.0) g/dL Lipase (23-300) U/L Urine Color Yellow Urine Appearance Clear (Clear) Urine pH 6.0 (5.0-8.0) Ur Specific [place] 1.031 (1.001-1.035) Urine Protein Trace H (Negative) Urine Glucose (UA) Negative (Negative) Urine Ketones Negative (Negative) Urine Blood Negative (Negative) Urine Nitrite Negative (Negative) Urine Bilirubin Negative (Negative) Urine Urobilinogen <2.0 (<2.0) mg/dL Ur Leukocyte Esterase Negative (Negative) Urine HCG, Qual Not Detected (Not Detectd) 05/20/20 05/20/20 Range/Units 07:45 07:45 WBC (3.8-10.6) k/uL RBC (3.80-5.40) m/uL Hgb (11.4-16.0) gm/dL Hct (34.0-46.0) % MCV (80.0-100.0) fL MCH (25.0-35.0) pg MCHC (31.0-37.0) g/dL RDW (11.5-15.5) % Plt Count (150-450) k/uL Neutrophils % % Lymphocytes % % Monocytes % % Eosinophils % % Basophils % % Neutrophils # (1.3-7.7) k/uL Lymphocytes # (1.0-4.8) k/uL Monocytes # (0-1.0) k/uL Eosinophils # (0-0.7) k/uL Basophils # (0-0.2) k/uL Sodium 140 (137-145) mmol/L Potassium 4.2 (3.5-5.1) mmol/L Chloride 111 H (98-107) mmol/L Carbon Dioxide 23 (22-30) mmol/L Anion Gap 6 mmol/L BUN 7 (7-17) mg/dL Creatinine 0.67 (0.52-1.04) mg/dL Est GFR (CKD-EPI)AfAm >90 (>60 ml/min/1.73 sqM) Est GFR (CKD-EPI)NonAf >90 (>60 ml/min/1.73 sqM) Glucose 106 H (74-99) mg/dL Plasma Lactic Acid Tariq 1.1 (0.7-2.0) mmol/L Calcium 8.7 (8.4-10.2) mg/dL Total Bilirubin 0.6 (0.2-1.3) mg/dL AST 30 (14-36) U/L ALT 45 H (4-34) U/L Alkaline Phosphatase 68 (38-126) U/L Total Protein 6.7 (6.3-8.2) g/dL Albumin 3.9 (3.5-5.0) g/dL Lipase 96 (23-300) U/L Urine Color Urine Appearance (Clear) Urine pH (5.0-8.0) Ur Specific [place] (1.001-1.035) Urine Protein (Negative) Urine Glucose (UA) (Negative) Urine Ketones (Negative) Urine Blood (Negative) Urine Nitrite (Negative) Urine Bilirubin (Negative) Urine Urobilinogen (<2.0) mg/dL Ur Leukocyte Esterase (Negative) Urine HCG, Qual (Not Detectd) Disposition Clinical Impression: Abdominal pain, Abscess Disposition: HOME SELF-CARE Condition: Stable Instructions (If sedation given, give patient instructions): Abdominal Pain (ED) Additional Instructions: follow-up with primary care provider tomorrow. Return to ER if any worsening symptoms. Prescriptions: Sulfamethox-Tmp 800-160Mg [Bactrim DS 800-160 mg] 1 tab PO Q12HR #20 tab Is patient prescribed a controlled substance at d/c from ED?: No Referrals: Vu Ramirez DO [Primary Care Provider] - 1-2 days
[2020-05-20 08:01] LABS: Appearance,Urine Clear (Clear); Basophils # (A) 0.1 k/uL (0-0.2); Basophils % (A) 1 %; Bilirubin,Urine Negative (Negative); Blood,Urine Negative (Negative); Color,Urine Yellow; Eosinophils # (A) 0.2 k/uL (0-0.7); Eosinophils % (A) 3 %; Glucose,Urine (UA) Negative (Negative); HCT 42.6 % (34.0-46.0); HGB 14.2 gm/dL (11.4-16.0); Ketones,Urine Negative (Negative); Leukocyte Esterase,Urine Negative (Negative); Lymphocytes # (A) 2.1 k/uL (1.0-4.8); Lymphocytes % (A) 27 %; MCH 29.4 pg (25.0-35.0); MCHC 33.3 g/dL (31.0-37.0); MCV 88.1 fL (80.0-100.0); Mean Platelet Volume 6.8; Monocytes # (A) 0.4 k/uL (0-1.0); Monocytes % (A) 5 %; Neutrophils # (A) 4.9 k/uL (1.3-7.7); Neutrophils % (A) 63 %; Nitrite,Urine Negative (Negative); Platelet Count 303 k/uL (150-450); Protein,Urine Trace (Negative); RBC 4.83 m/uL (3.80-5.40); RDW 12.7 % (11.5-15.5); Specific Gravity,Urine 1.031 (1.001-1.035); Urobilinogen,Urine <2.0 mg/dL (<2.0); WBC 7.8 k/uL (3.8-10.6)
[2020-05-20 08:04] LABS: ALT 45 U/L (4-34); AST 30 U/L (14-36); African American GFR (CKD) >90 (>60 ml/min/1.73 sqM); Albumin 3.9 g/dL (3.5-5.0); Alkaline Phosphatase 68 U/L (38-126); Anion Gap 6 mmol/L; Blood Urea Nitrogen 7 mg/dL (7-17); Calcium 8.7 mg/dL (8.4-10.2); Carbon Dioxide 23 mmol/L (22-30); Chloride 111 mmol/L (98-107); Glucose 106 mg/dL (74-99); Non-African American GFR(CKD) >90 (>60 ml/min/1.73 sqM); Sodium 140 mmol/L (137-145); Total Bilirubin 0.6 mg/dL (0.2-1.3); Total Protein 6.7 g/dL (6.3-8.2)
[2020-05-20 08:05] LABS: Potassium 4.2 mmol/L (3.5-5.1)
--- NOTE | 2020-05-20 08:46 | US ---
EXAMINATION TYPE: US transvaginal DATE OF EXAM: 05/20/2020 COMPARISON: NONE CLINICAL HISTORY: right lower abdominal pain . Pain left ovary removed TECHNIQUE: Transvaginal (TV). EXAM MEASUREMENTS: Uterus: 7.5 x 4.5 x 5.2 cm Endometrial Stripe: .4 cm Right Ovary: 2.6 x 2.0 x 2.0 cm Left Ovary: Surgically absent cm 1. Uterus: Anteverted wnl 2. Endometrium: wnl 3. Right Ovary: Follicles seen largest 1.5 cm. 4. Left Ovary: Surgically absent Spectral, color and waveform doppler imaging shows arterial and venous flow within the right ovary. 5. Bilateral Adnexa: wnl 6. Posterior cul-de-sac: wnl IMPRESSION: Nonvisualization of the left ovary. Otherwise unremarkable pelvic ultrasound.
--- NOTE | 2020-05-20 09:00 | CT ---
EXAMINATION TYPE: CT abdomen pelvis w con DATE OF EXAM: 05/20/2020 HISTORY: Right sided abdominal pain CT DLP: 1905.8mGycm Automated Exposure Control for Dose Reduction was Utilized. CONTRAST: CT scan of the abdomen and pelvis is performed with IV Contrast, patient injected with 100 mL of Isov ue 300. COMPARISON: None. FINDINGS: LUNG BASES: No significant abnormality is appreciated. LIVER/GB: Cholecystectomy clips. Liver is low dense relative to spleen consistent with diffuse fatty infiltration. Liver size upper limits of normal. PANCREAS: No significant abnormality is seen. SPLEEN: Spleen mildly enlarged at 14.5 cm long axis coronal image 63. ADRENALS: No significant abnormality is seen. KIDNEYS: Symmetric cortical medullary uptake and excretion without concerning renal mass or hydroneph rosis seen bilaterally. BOWEL: Suboptimal evaluation of bowel without enteric contrast. No suspicious small or large bowel di latation. Normal-appearing appendix from cecum mild to moderate wall thickening of the right colon is present. No surrounding inflammatory change. Mild wall thickening of the left colon into the sigmoid colon. UTERUS/ADNEXA: Anteverted uterus. LYMPH NODES: No greater than 1cm abdominal or pelvic lymph nodes are appreciated. OSSEOUS STRUCTURES: No significant abnormality is seen. OTHER: No significant additional abnormality is seen. IMPRESSION: 1. Mild wall thickening portions of colon without surrounding inflammatory change. Favor product of n ondistention, a mild uncomplicated acute colitis is not entirely excluded. 2. Mild splenomegaly. Liver size upper limits of normal with diffuse fatty infiltration.
[2020-05-20] MEDS ORDERED: ACET/COD 300 MG/30 MG STARTER PACK 6 TAB BTL PO STA (10:04)
[2020-05-20] MEDS ORDERED: SULFAMETH-TMP DS STARTER PACK 2 TAB BTL PO STA (10:04)
[2020-05-20] MEDS ORDERED: KETOROLAC 15 MG/ML 1 ML VIAL IVP STA (10:14)
[2020-05-20 10:35] VITALS: BP 122/77; PULSE 72; TEMP 97.9
== END 2020-05-20 10:35 | disposition home or self-care (01) ==
LOC: EC 07:03
DX: L02.211 Cutaneous abscess of abdominal wall (principal); R16.1 Splenomegaly, not elsewhere classified; K76.0 Fatty (change of) liver, not elsewhere classified; R19.7 Diarrhea, unspecified; R11.0 Nausea; F17.290 Nicotine dependence, other tobacco product, uncomplicated; Z88.0 Allergy status to penicillin; Z90.721 Acquired absence of ovaries, unilateral; Z85.41 Personal history of malignant neoplasm of cervix uteri; Z90.49 Acquired absence of other specified parts of digestive tract; Z98.51 Tubal ligation status
CPT/HCPCS: 36415; 80053; 83605; 83690; 85025; 81003; 81025; 87070; 87205; 93976; 76830; 74177; 99285; 96374; 96375; 96361; J2765; J1885; Q9967

== ENCOUNTER 2020-12-02 21:33 | Emergency (ER) | payer OTHER ==
[2020-12-02 21:58] VITALS: TEMP 97.3
[2020-12-02 22:28] VITALS: BP 159/92; PULSE 92; RESP 20
[2020-12-02] MEDS ORDERED: ONDANSETRON ODT 4 MG TAB PO STA (22:30)
[2020-12-02] MEDS ORDERED: KETOROLAC 15 MG/ML 1 ML VIAL IM STA (22:30)
[2020-12-02] MEDS ORDERED: CEPHALEXIN 500 MG CAP PO STA (23:04)
--- NOTE | 2020-12-02 23:06 | ED ---
Headache HPI - General Chief Complaint: Headache Stated Complaint: painful lumps on head Time Seen by Provider: 12/02/20 22:03 Mode of arrival: ambulatory Limitations: no limitations - History of Present Illness Initial Comments: Patient is a 40-year-old female presenting to the emergency Department with complaints of having a headache, loss on her scalp that she noticed for the past 2 days as well as right ear pain. She states she noticed a small bump in the back of her head, was mildly sore to the touch and then yesterday noticed another bump on the right side of her scalp. She states she found another one today behind her right ear and decided to come in. She's been having right ear pain for the past 3 days as well. She denies any recent fevers or chills. She states she was tested for covert twice last week and they were both negative. She denies any coughing, no shortness of breath. She has no abdominal pain, nausea or vomiting. She denies any falls or trauma. She denies any neck pain. She has no further complaints at this time. - Related Data Previous Rx's Medication Instructions Recorded Cephalexin [Keflex] 500 mg PO QID 5 Days #20 cap 12/02/20 Allergies Allergy/AdvReac Type Severity Reaction Status Date / Time Penicillins Allergy Swelling Verified 12/02/20 22:16 Review of Systems ROS Statement: Those systems with pertinent positive or pertinent negative responses have been documented in the HPI. ROS Other: All systems not noted in ROS Statement are negative. Past Medical History Past Medical History: Asthma, Cancer Additional Past Medical History / Comment(s): back pain, migraines, cervical Ca History of Any Multi-Drug Resistant Organisms: MRSA Date of last positivie culture/infection: 05/20/20 MDRO Source:: Abdomen Past Surgical History: Cholecystectomy, Tubal Ligation Additional Past Surgical History / Comment(s): left ovary and fallopian tube removed, vaginal reconstruction, cone procedure, cryofreeze for cervical ca Past Psychological History: No Psychological Hx Reported Smoking Status: Vaper Past Alcohol Use History: Occasional Past Drug Use History: Marijuana General Exam - General Exam Comments Initial Comments: GENERAL: Patient is well-developed and well-nourished. Patient is nontoxic and in no acute distress. HEAD: Atraumatic, normocephalic. EYES: Pupils equal round and reactive to light, extraocular movements intact, sclera anicteric, conjunctiva are normal. Eyelids were unremarkable. ENT: Right TM is erythematous, slightly bulging, the ear canal is also very erythematous. Left TM and ear canal are within normal limits, nares patent, oropharynx clear without exudates. Moist mucous membranes. NECK: Normal range of motion, No JVD. Patient does have a few right sided cervical lymphadenopathy. LUNGS: Unlabored respirations. Breath sounds clear to auscultation bilaterally and equal. No wheezes rales or rhonchi. HEART: Regular rate and rhythm without murmurs, rubs or gallops. ABDOMEN: Soft, nontender, normoactive bowel sounds. No guarding, no rebound. No masses appreciated. : Deferred MUSCULOSKELETAL: Normal extremities with adequate strength and normal range of motion, no pitting or edema. No clubbing or cyanosis. NEUROLOGICAL: Patient is alert and oriented x 3. Motor and sensory are also intact. Cranial nerves II through XII grossly intact. Symmetrical smile. Normal speech, normal gait. PSYCH: Normal mood, normal affect. SKIN: Warm, Dry, normal turgor, no rashes or lesions noted. Patient does have 3 very small bumps noted to her right scalp as well as posterior scalp, there are small, 0.5 cm, they seemed to be mildly tender however there is no erythema, no fluctuance noted, does not feel like an abscess. Limitations: no limitations Course Vital Signs 12/02/20 12/02/20 21:55 22:23 Temperature 97.3 F L Pulse Rate 64 92 Respiratory 22 20 Rate Blood Pressure 159/103 159/92 O2 Sat by Pulse 97 97 Oximetry Medical Decision Making - Medical Decision Making Patient is a 40-year-old female here with concerns of a few bumps on her scalp as well as right ear pain for the past 2-3 days. Table, she is afebrile. She tested negative for Covid twice last week. She does have a few small bumps on her scalp, they seem to be mildly painful to the touch however no signs of an abscess, no redness to the scalp itself. He does have otitis media and externa of her right ear. Patient will be started on antibiotics. I gave her Toradol and Zofran today for her symptoms. She does report improvement. She is stable for discharge. Recommend following up with her primary care physician as well as dermatology. Case discussed with Dr. Bernardo. Disposition Clinical Impression: Headache, Right otitis media, Lump of scalp Disposition: HOME SELF-CARE Condition: Stable Instructions (If sedation given, give patient instructions): Ear Infection (ED) Additional Instructions: Please return to the Emergency Department if symptoms worsen or any other concerns. Take antibiotics as prescribed. Please follow up with your regular family doctor as well as dermatology. Prescriptions: Cephalexin [Keflex] 500 mg PO QID 5 Days #20 cap Is patient prescribed a controlled substance at d/c from ED?: No Referrals: Vu Ramirez DO [Primary Care Provider] - 1-2 days Dariana Ross MD [STAFF PHYSICIAN] - 1-2 days
[2020-12-02] MEDS ORDERED: traMADol 50 MG STARTER PACK 3 TAB BTL PO STA (23:29)
== END 2020-12-02 23:41 | disposition home or self-care (01) ==
LOC: EC 21:33
DX: H66.91 Otitis media, unspecified, right ear (principal); R22.0 Localized swelling, mass and lump, head; J45.909 Unspecified asthma, uncomplicated; F12.90 Cannabis use, unspecified, uncomplicated; F17.290 Nicotine dependence, other tobacco product, uncomplicated; Z85.41 Personal history of malignant neoplasm of cervix uteri; Z88.0 Allergy status to penicillin
CPT/HCPCS: 99283; 96372; J1885

== ENCOUNTER → 2023-06-27 | Outpatient (CLI) | payer OTHER ==
--- NOTE | 2023-06-27 10:22 | CA ---
Exercise Stress Test Report Name: Soila Cadet Exam Date: 06/27/2023 09:10 Exam Location: [place] Stress Ht (in): 65 Wt (lb): 215 BSA: 2.04 Ordering Phys: Rajeev Harrell MD Referring Phys: Namita Marshall PAC Technologist: Kareem Carlos Age: 42 Gender: F : 1980 Procedure CPT: Indications: R07.89 chest pain ICD-10 Codes: Patient History: Chest pain Medications: Meds past 24 hrs: Pretest Chest Pain: STRESS TEST Margarito Protocol Exercise Duration (min:sec): 07:[address] Depressions (mm): 0 Angina Score: 0 Harris Score: 7.08 Resting HR (bpm): 77 Peak HR (bpm): 161 Resting BP (mmHg): 138 / 83 Peak BP (mmHg): 192 / 81 MPHR: 180 Target HR: 153 % MPHR: 89 METS: 8.9 Total Dose: Peak Dose: Atropine: Double Product: 83288 BP Response: Stress Termination: Reached target heart rate Stress Symptoms: No chest pain or symptoms Stress Summary: The patient's target heart rate was achieved , The hemodynamic response to exercise was normal ECG ANALYSIS Resting ECG: Sinus rhythm. Normal conduction. No arrhythmias. Normal repolarization. Stress ECG: No ECG evidence of ischemia with exercise. CONCLUSIONS Patient falls into low-risk group (DTS >= +5). This associates the patient with an annual CV mortality <= 0.5%. Exercise capacity fair to good at 6-10 METS. No chest discomfort with stress test. Normal ST segment response to stress. Dr. Siena Pickard MD (Electronically Signed) Final Date: 27 June 2023 10:21
== END | disposition home or self-care (01) ==
LOC: RADNMMAIN 08:14
PROVIDERS: ATTEND Family Medicine
DX: R07.89 Other chest pain (principal)
CPT/HCPCS: 93017

== ENCOUNTER → 2023-06-27 | Outpatient (CLI) | payer OTHER ==
--- NOTE | 2023-06-27 10:25 | CA ---
Transthoracic Echo Report Name: Soila Cadet Age: 42 Gender: F : 1980 Exam Date: 06/27/2023 08:32 Exam Location: [facility] Ht (in): 65 Wt (lb): 215 Ordering Physician: Rajeev Harrell MD Attending/Referring Phys: Namita Marshall PAC Furnace Helper Danya Chu RDCS Procedure CPT: Indications: R07.89 other chest pain Cardiac Hx: Technical Quality: Good Contrast 1: Total Dose (mL): Contrast 2: Total Dose (mL): MEASUREMENTS (Male / Female) Normal Values 2D ECHO LV Diastolic Diameter PLAX 4.5 cm 4.2 - 5.9 / 3.9 - 5.3 cm LV Systolic Diameter PLAX 3.6 cm IVS Diastolic Thickness 1.2 cm 0.6 - 1.0 / 0.6 - 0.9 cm LVPW Diastolic Thickness 1.1 cm 0.6 - 1.0 / 0.6 - 0.9 cm LV Relative Wall Thickness 0.5 RV Internal Dim ED PLAX 3.2 cm LA Systolic Diameter LX 3.6 cm 3.0 - 4.0 / 2.7 - 3.8 cm LV Diastolic Volume MOD 4C 125.8 cm??? LV Systolic Volume MOD 4C 74.3 cm??? LV Ejection Fraction MOD 4C 40.9 % LV Cardiac Index MOD 4C 1669.8 cm???/min???m??? LV Diastolic Length 4C 8.5 cm LV Systolic Length 4C 7.0 cm LV Diastolic Volume MOD 2C 111.5 cm??? LV Systolic Volume MOD 2C 53.6 cm??? LV Ejection Fraction MOD 2C 52.0 % LV Cardiac Index MOD 2C 1881.0 cm???/min???m??? LV Diastolic Length 2C 8.9 cm LV Systolic Length 2C 7.3 cm LA Volume 47.2 cm??? 18 - 58 / 22 - 52 cm??? LA Volume Index 21.9 cm???/m??? 16 - 28 cm???/m??? M-MODE Aortic Root Diameter MM 3.5 cm MV E Point Septal Separation 1.3 cm AV Cusp Separation MM 2.3 cm DOPPLER AV Peak Velocity 177.8 cm/s AV Peak Gradient 12.6 mmHg AI Peak Velocity 498.3 cm/s AI Peak Gradient 99.3 mmHg AI Pressure Half Time 487.8 ms MV Area PHT 3.4 cm??? Mitral E Point Velocity 103.5 cm/s Mitral A Point Velocity 80.9 cm/s Mitral E to A Ratio 1.3 MV Deceleration Time 224.0 ms MV E' Velocity 8.6 cm/s Mitral E to MV E' Ratio 12.0 TR Peak Velocity 207.5 cm/s TR Peak Gradient 17.2 mmHg Right Ventricular Systolic Press 22.2 mmHg FINDINGS Left Ventricle Left ventricular ejection fraction is estimated at 55-60 %. Left ventricular cavity size normal. Mildly increased left ventricular wall thickness. Normal left ventricular wall motion. Normal left ventricular diastolic filling pattern. Right Ventricle Normal right ventricular size. Right ventricular systolic pressure within normal limits. Right Atrium Normal right atrial size. Left Atrium Normal left atrial size. Mitral Valve Structurally normal mitral valve. Mild mitral regurgitation. Aortic Valve Aortic valve not well visualized. Huyw-ho-zvobyvli aortic regurgitation. Tricuspid Valve Structurally normal tricuspid valve. Mild tricuspid regurgitation. Pulmonic Valve Pulmonic valve not well visualized. No pulmonic regurgitation. Pericardium No pericardial effusion. Aorta Normal size aortic root and proximal ascending aorta. CONCLUSIONS 1. Normal left ventricular size and systolic function 2. Mild mitral and tricuspid regurgitation 3. Aortic valve was not well-visualized, mild to moderate aortic regurgitation Previewed by: Dr. Siena Pickard MD (Electronically Signed) Final Date: 27 June 2023 10:24
== END | disposition home or self-care (01) ==
LOC: RADECHMAIN 08:18
PROVIDERS: ATTEND Family Medicine
DX: I08.1 Rheumatic disorders of both mitral and tricuspid valves (principal); R07.89 Other chest pain
CPT/HCPCS: 93306

== ENCOUNTER 2024-09-11 13:39 | Emergency (ER) | payer OTHER ==
[2024-09-11 13:43] VITALS: RESP 20
--- NOTE | 2024-09-11 13:51 | ED ---
URI HPI - General Chief Complaint: Upper Respiratory Infection Stated Complaint: Cough,Congestion,Nausea Time Seen by Provider: 09/11/24 13:50 Source: patient, RN notes reviewed Mode of arrival: ambulatory Limitations: no limitations - History of Present Illness Initial Comments: 43-year-old female presenting for cough x 4 days. States she has been exp eriencing nasal congestion, productive cough, body aches, and headache. She is tolerating orals well. Denies sore throat. States she has a history of asthma but denies shortness of breath or wheezing. - Related Data Previous Rx's Medication Instructions Recorded Cephalexin [Keflex] 500 mg PO QID 5 Days #20 cap 12/02/20 Allergies Allergy/AdvReac Type Severity Reaction Status Date / Time Penicillins Allergy Swelling Verified 12/02/20 22:16 Review of Systems ROS Statement: Those systems with pertinent positive or pertinent negative responses have been documented in the HPI. ROS Other: All systems not noted in ROS Statement are negative. Past Medical History Past Medical History: Asthma, Cancer Additional Past Medical History / Comment(s): back pain, migraines, cervical Ca. ovarian cancer History of Any Multi-Drug Resistant Organisms: MRSA Date of last positivie culture/infection: 05/20/20 MDRO Source:: Abdomen Past Surgical History: Cholecystectomy, Tubal Ligation Additional Past Surgical History / Comment(s): left ovary and fallopian tube re moved, vaginal reconstruction, cone procedure, cryofreeze for cervical ca Past Psychological History: No Psychological Hx Reported Smoking Status: Vaper Past Alcohol Use History: Occasional Past Drug Use History: Marijuana General Exam Limitations: no limitations General appearance: alert, in no apparent distress Head exam: Present: atraumatic, normocephalic, normal inspection Eye exam: Present: normal appearance, PERRL, EOMI. Absent: scleral icterus, conjunctival injection, periorbital swelling ENT exam: Present: normal exam, normal oropharynx, TM's normal bilaterally Neck exam: Present: normal inspection. Absent: tenderness, meningismus, lymphadenopathy Respiratory exam: Present: normal lung sounds bilaterally. Absent: respiratory distress, wheezes, rales, rhonchi, stridor Cardiovascular Exam: Present: regular rate, normal rhythm, normal heart sounds. Absent: systolic murmur, diastolic murmur, rubs, gallop, clicks Neurological exam: Present: alert, oriented X3 Psychiatric exam: Present: normal affect, normal mood Skin exam: Present: warm, dry, intact, normal color. Absent: rash Course Vital Signs 09/11/24 09/11/24 13:40 13:47 Temperature 98.2 F Pulse Rate 87 Respiratory 20 20 Rate Blood Pressure 151/96 O2 Sat by Pulse 99 Oximetry Medical Decision Making - Medical Decision Making Was pt. sent in by a medical professional or institution (TIFFANY Zapata, STEAM TRAIN DRIVER, urgent care, hospital, or long-term...) When possible be specific @ -No Did you speak to anyone other than the patient for history (EMS, parent, family, police, friend...)? What history was obtained from this source @ -No Did you review nursing and triage notes (agree or disagree)? Why? @ -I reviewed and agree with nursing and triage notes Were old charts reviewed (outside hosp., previous admission, EMS record, old EKG, old radiological studies, urgent care reports/EKG's, long-term records)? Report findings @ -No old charts were reviewed Differential Diagnosis (chest pain, altered mental status, abdominal pain women, abdominal pain men, vaginal bleeding, weakness, fever, dyspnea, syncope, headache, dizziness, GI bleed, back pain, seizure, CVA, palpatations, mental health, musculoskeletal)? @ -Viral URI, COVID, influenza, RSV, pneumonia, bronchitis EKG interpreted by me (3pts min.). @ -None X-rays interpreted by me (1pt min.). @ -Chest x-ray reveals no acute process CT interpreted by me (1pt min.). @ -None done U/S interpreted by me (1pt. min.). @ -None done What testing was considered but not performed or refused? (CT, X-rays, U/S, labs)? Why? @ -None What meds were considered but not given or refused? Why? @ -None Did you discuss the management of the patient with other professionals (professionals i.e. TIFFANY Zapata, STEAM TRAIN DRIVER, lab, RT, psych nurse, pediatric social worker, environmental field team member, teacher, mobile patrol officer, comp field case manager)? Give summary @ -No Was smoking cessation discussed for >3mins.? @ -No Was critical care preformed (if so, how long)? @ -No Were there social determinants of health that impacted care today? How? (Homelessness, low income, unemployed, alcoholism, drug addiction, transporta tion, low edu. Level, literacy, decrease access to med. care, half-way, rehab)? @ -No Was there de-escalation of care discussed even if they declined (Discuss DNR or withdrawal of care, Hospice)? DNR status @ -No What co-morbidities impacted this encounter? (DM, HTN, Smoking, COPD, CAD, Cancer, CVA, ARF, Chemo, Hep., AIDS, mental health diagnosis, sleep apnea, morbid obesity)? @ -None Was patient admitted / discharged? Hospital course, mention meds given and route, prescriptions, significant lab abnormalities, going to OR and other pertinent info. @ -Discharge. 43-year-old female with cough x 4 days with nasal congestion and bodyaches. Vital signs within acceptable limits. Heart and lungs clear to auscultation bilaterally. No sign of bacterial infection. Patient provided with 1 dose of Tylenol for supportive care. Patient is negative for COVID, influenza, and RSV. Chest x-ray reveals no acute process. Results discussed with patient. Discussed diagnosis of upper respiratory infection. Appropriate supportive care and return precautions discussed. Case was discussed with my ED attending Dr. Avilez. Undiagnosed new problem with uncertain prognosis? @ -No Drug Therapy requiring intensive monitoring for toxicity (Heparin, Nitro, Insulin, Cardizem)? @ -No Were any procedures done? @ -No Diagnosis/symptom? @ -Upper respiratory infection Acute, or Chronic, or Acute on Chronic? @ -Acute Uncomplicated (without systemic symptoms) or Complicated (systemic symptoms)? @ -Uncomplicated Side effects of treatment? @ -No Exacerbation, Progression, or Severe Exacerbation? @ -No Poses a threat to life or bodily function? How? (Chest pain, USA, [place], pneumonia, PE, COPD, DKA, ARF, appy, cholecystitis, CVA, Diverticulitis, Homicidal, Suicidal, threat to staff... and all critical care pts) @ -No - Lab Data Lab Results 09/11/24 Range/Units 13:51 Influenza Type A (PCR) Not Detected (Not Detectd) Influenza Type B (PCR) Not Detected (Not Detectd) RSV (PCR) Not Detected (Not Detectd) SARS-CoV-2 (PCR) Not Detected (Not Detectd) Disposition Clinical Impression: Upper respiratory infection Disposition: HOME SELF-CARE Condition: Stable Instructions (If sedation given, give patient instructions): Upper Respiratory Infection (ED) Additional Instructions: Take Tylenol or ibuprofen as needed for pain. Please return to the Emergency Department if symptoms worsen or any other concerns. Is patient prescribed a controlled substance at d/c from ED?: No Referrals: Rajeev Harrell MD [Primary Care Provider] - 1-2 days Time of Disposition: 15:22
[2024-09-11] MEDS: ACETAMINOPHEN TAB 500 MG TAB PO STA (13:54)
--- NOTE | 2024-09-11 14:28 | XR ---
EXAMINATION TYPE: XR chest 2V DATE OF EXAM: 09/11/2024 2:12 PM COMPARISON: Chest radiographs from 02/16/2017. CLINICAL INDICATION: Female, 43 years old with history of cough; [facility] TECHNIQUE: XR chest 2V Frontal and lateral views of the chest. FINDINGS: Lungs/Pleura: There is no evidence of pleural effusion, focal consolidation, or pneumothorax. Pulmonary vascularity: Unremarkable. Heart/mediastinum: Cardiomediastinal silhouette is unremarkable. Musculoskeletal: No acute osseous pathology. IMPRESSION: No acute cardiopulmonary disease/process. [facility], , 09/11/2024 2:26 PM
[2024-09-11 14:45] LABS: Influenza A Not Detected (Not Detectd); Influenza B Not Detected (Not Detectd); RSV Not Detected (Not Detectd)
[2024-09-11 15:58] VITALS: BP 146/80; PULSE 82; TEMP 98
== END 2024-09-11 15:57 | disposition home or self-care (01) ==
LOC: EC 13:39
DX: J06.9 Acute upper respiratory infection, unspecified (principal); F17.290 Nicotine dependence, other tobacco product, uncomplicated; Z88.0 Allergy status to penicillin
CPT/HCPCS: 71046; 87636; 99284

== ENCOUNTER → 2024-11-01 | Outpatient (CLI) | payer OTHER ==
--- NOTE | 2024-11-01 09:33 | US ---
EXAMINATION TYPE: US venous doppler duplex LE BI DATE OF EXAM: 11/01/2024 9:16 AM COMPARISON: Prior 2019 RIGHT LOWER EXTREMITY CLINICAL INDICATION: Female, 44 years old with history of M79.89 OTHER SPECIFIED SOFT TISSUE DISORDER S; bilateral leg pain, Pain TECHNIQUE: The lower extremity deep venous system is examined utilizing real time linear array sonog gage with graded compression, color doppler sonography, and spectral doppler. SIDE PERFORMED: Bilateral FINDINGS: VESSELS IMAGED: Common Femoral Vein Deep Femoral Vein Greater Saphenous Vein * Femoral Vein Popliteal Vein Small Saphenous Vein * Proximal Calf Veins (* superficial vessels) Right Leg: No evidence for DVT, Color Doppler imaging shows patency of the vessels. Spectral wavefor ms are within normal limits. Left Leg: No evidence for DVT, Color Doppler imaging shows patency of the vessels. Spectral waveform s are within normal limits. IMPRESSION: No ultrasound evidence for deep venous thrombosis. [facility], , 11/01/2024 9:31 AM
[2024-11-01 09:46] LABS: Basophils # (A) 0.1 k/uL (0-0.2); Basophils % (A) 1 %; Eosinophils # (A) 0.4 k/uL (0-0.7); Eosinophils % (A) 6 %; HCT 39.4 % (34.0-46.0); HGB 12.6 gm/dL (11.4-16.0); Lymphocytes # (A) 1.7 k/uL (1.0-4.8); Lymphocytes % (A) 24 %; MCH 28.8 pg (25.0-35.0); MCHC 32.1 g/dL (31.0-37.0); MCV 89.6 fL (80.0-100.0); Mean Platelet Volume 7.3; Monocytes # (A) 0.4 k/uL (0-1.0); Monocytes % (A) 6 %; Neutrophils # (A) 4.3 k/uL (1.3-7.7); Neutrophils % (A) 61 %; Platelet Count 263 k/uL (150-450); RBC 4.39 m/uL (3.80-5.40); RDW 13.9 % (11.5-15.5); WBC 7.1 k/uL (3.8-10.6)
[2024-11-01 10:01] LABS: ALT 55 U/L (4-34); AST 34 U/L (14-36); African American GFR (CKD) >90 (>60 ml/min/1.73 sqM); Albumin/Globulin Ratio 1.5; Alkaline Phosphatase 77 U/L (38-126); Anion Gap 9 mmol/L; Blood Urea Nitrogen 16 mg/dL (7-17); Calcium 8.8 mg/dL (8.4-10.2); Carbon Dioxide 23 mmol/L (22-30); Chloride 105 mmol/L (98-107); Globulin 2.7 g/dL; Glucose 109 mg/dL (74-99); Non-African American GFR(CKD) >90 (>60 ml/min/1.73 sqM); Potassium 4.3 mmol/L (3.5-5.1); Sodium 137 mmol/L (137-145); Total Bilirubin 0.4 mg/dL (0.2-1.3); Total Protein 6.7 g/dL (6.3-8.2)
[2024-11-01 10:08] LABS: NT-Pro-B-Type Natriuretic Pept 122 pg/mL
== END | disposition home or self-care (01) ==
LOC: RADUSWWP 08:36
PROVIDERS: ATTEND Family Medicine
DX: M79.89 Other specified soft tissue disorders (principal)
CPT/HCPCS: 80053; 83880; 85025; 93970

== ENCOUNTER 2024-11-21 09:18 | Emergency (ER) | payer OTHER ==
--- NOTE | 2024-11-21 10:06 | ED ---
Extremity Problem HPI - General Chief complaint: Extremity Problem,Nontraumatic Stated complaint: left leg swelling,pain,discoloration Time Seen by Provider: 11/21/24 09:28 Source: patient, RN notes reviewed Mode of arrival: ambulatory Limitations: no limitations - History of Present Illness Initial comments: 44-year-old female presents emergency department complaint of left leg pain, swelling. Patient states that she recent symptoms worsen. Patient states that she noticed some discoloration of the lower extremity which was more red in nature. Patient states that it is painful she states pain is up and down her leg from a primary knee down. Denies any back pain denies any bowel, bladder incontinence retention no focal weakness. Patient offers no complaints. - Related Data Previous Rx's Medication Instructions Recorded Cephalexin [Keflex] 500 mg PO QID 5 Days #20 cap 12/02/20 Cephalexin [Keflex] 500 mg PO Q6HR #40 cap 11/21/24 Allergies Allergy/AdvReac Type Severity Reaction Status Date / Time Penicillins Allergy Swelling Verified 11/21/24 09:26 Review of Systems ROS Statement: Those systems with pertinent positive or pertinent negative responses have been documented in the HPI. ROS Other: All systems not noted in ROS Statement are negative. Past Medical History Past Medical History: Asthma, Cancer Additional Past Medical History / Comment(s): back pain, migraines, cervical Ca. ovarian cancer History of Any Multi-Drug Resistant Organisms: MRSA Date of last positivie culture/infection: 05/20/20 MDRO Source:: Abdomen Past Surgical History: Cholecystectomy, Tubal Ligation Additional Past Surgical History / Comment(s): left ovary and fallopian tube removed, vaginal reconstruction, cone procedure, cryofreeze for cervical ca Past Psychological History: No Psychological Hx Reported Smoking Status: Vaper Past Alcohol Use History: Occasional Past Drug Use History: Marijuana General Exam Limitations: no limitations General appearance: alert, in no apparent distress Head exam: Present: atraumatic, normocephalic, normal inspection Respiratory exam: Present: normal lung sounds bilaterally. Absent: respiratory distress, wheezes, rales, rhonchi, stridor Cardiovascular Exam: Present: regular rate, normal rhythm, normal heart sounds. Absent: systolic murmur, diastolic murmur, rubs, gallop, clicks Extremities exam: Present: other (Left lower extremity there is noted erythema the distal third, there is small wound noted pedal pulses are equal bilaterally there is mild swelling over the left versus the right there is mild posterior left knee tenderness with full range of motion) Course Vital Signs 11/21/24 09:23 Temperature 97.6 F Pulse Rate 85 Respiratory 18 Rate Blood Pressure 128/70 O2 Sat by Pulse 96 Oximetry Medical Decision Making - Medical Decision Making Was pt. sent in by a medical professional or institution (, [employer], [employer] EXCHANGE ARCHITECT, urgent care, hospital, or fpc...) When possible be specific @ -No Did you speak to anyone other than the patient for history (EMS, parent, family, police, friend...)? What history was obtained from this source @ -No Did you review nursing and triage notes (agree or disagree)? Why? @ -I reviewed and agree with nursing and triage notes Were old charts reviewed (outside hosp., previous admission, EMS record, old EKG, old radiological studies, urgent care reports/EKG's, fpc records)? Report findings @ -No old charts were reviewed Differential Diagnosis (chest pain, altered mental status, abdominal pain women, abdominal pain men, vaginal bleeding, weakness, fever, dyspnea, syncope, headache, dizziness, GI bleed, back pain, seizure, CVA, palpatations, mental health, musculoskeletal)? @ -DVT, SVT, cellulitis EKG interpreted by me (3pts min.). @ -None X-rays interpreted by me (1pt min.). @ -None done CT interpreted by me (1pt min.). @ -None done U/S interpreted by me (1pt. min.). @ -Ultra sound venous Doppler negative for DVT left leg What testing was considered but not performed or refused? (CT, X-rays, U/S, labs)? Why? @ -None What meds were considered but not given or refused? Why? @ -None Did you discuss the management of the patient with other professionals (professionals i.e. TIFFANY Zapata, MICROS[employer] EXCHANGE ARCHITECT, lab, RT, psych nurse, social worker psychiatric, supervisor car and yard, teacher, booking officer, bottle caser)? Give summary @ -No Was smoking cessation discussed for >3mins.? @ -No Was critical care preformed (if so, how long)? @ -No Were there social determinants of health that impacted care today? How? (Homelessness, low income, unemployed, alcoholism, drug addiction, transportation, low edu. Level, literacy, decrease access to med. care, shelter, re hab)? @ -No Was there de-escalation of care discussed even if they declined (Discuss DNR or withdrawal of care, Hospice)? DNR status @ -No What co-morbidities impacted this encounter? (DM, HTN, Smoking, COPD, CAD, Cancer, CVA, ARF, Chemo, Hep., AIDS, mental health diagnosis, sleep apnea, morbid obesity)? @ -None Was patient admitted / discharged? Hospital course, mention meds given and route, prescriptions, significant lab abnormalities, going to OR and other pertinent info. @ -Discharge patient has left leg cellulitis with obvious source, wound. Patient was started on Keflex. Patient will follow-up with PCP return parens discussed. Undiagnosed new problem with uncertain prognosis? @ -No Drug Therapy requiring intensive monitoring for toxicity (Heparin, Nitro, Insulin, Cardizem)? @ -No Were any procedures done? @ -No Diagnosis/symptom? @ -Left leg cellulitis Acute, or Chronic, or Acute on Chronic? @ -Acute Uncomplicated (without systemic symptoms) or Complicated (systemic symptoms)? @ -Uncomplicated Side effects of treatment? @ -No Exacerbation, Progression, or Severe Exacerbation? @ -No Poses a threat to life or bodily function? How? (Chest pain, USA, [place], pneumonia, PE, COPD, DKA, ARF, appy, cholecystitis, CVA, Diverticulitis, Homicidal, Suicidal, threat to staff... and all critical care pts) @ -No Disposition Clinical Impression: Cellulitis, leg Disposition: HOME SELF-CARE Condition: Stable Instructions (If sedation given, give patient instructions): Cellulitis (ED) Additional Instructions: Please return to the Emergency Department if symptoms worsen or any other concerns. Prescriptions: Cephalexin [Keflex] 500 mg PO Q6HR #40 cap Is patient prescribed a controlled substance at d/c from ED?: No Referrals: Rajeev Harrell MD [Primary Care Provider] - 1-2 days Time of Disposition: 10:40
--- NOTE | 2024-11-21 10:33 | US ---
EXAMINATION TYPE: US venous doppler duplex LE LT DATE OF EXAM: 11/21/2024 10:24 AM COMPARISON: NONE CLINICAL INDICATION: Female, 44 years old with history of pain, swelling, redness; edema/pain left le g, intermittent for a few weeks, Pain TECHNIQUE: The lower extremity deep venous system is examined utilizing real time linear array sonog gage with graded compression, color doppler sonography, and spectral doppler. SIDE PERFORMED: left FINDINGS: VESSELS IMAGED: Common Femoral Vein Deep Femoral Vein Greater Saphenous Vein * Femoral Vein Popliteal Vein Small Saphenous Vein * Proximal Calf Veins (* superficial vessels) Left Leg: No evidence of DVT as visualized , Color Doppler imaging shows patency of the vessels. Spe ctral waveforms are within normal limits. IMPRESSION: No evidence for DVT within the left lower extremity imaged from the groin to the upper calf. [facility], , 11/21/2024 10:30 AM
[2024-11-21] MEDS: ACET/COD 300 MG/30 MG STARTER PACK 6 TAB BTL PO STA (10:53)
[2024-11-21 11:03] VITALS: BP 158/83; PULSE 66; RESP 20; TEMP 98.7
== END 2024-11-21 11:03 | disposition home or self-care (01) ==
LOC: EC 09:18
DX: L03.116 Cellulitis of left lower limb (principal); F17.290 Nicotine dependence, other tobacco product, uncomplicated; Z88.0 Allergy status to penicillin
CPT/HCPCS: 99283